=== PATIENT | female | born 1975 | race Caucasian/White ===

== ENCOUNTER 2021-11-22 12:14 | Outpatient (CLI) | payer OTHER, SELFPAY ==
--- NOTE | ~2021-11-22 | XR_ITS ---
EXAMINATION: XR lg joint inject/asp w image DATE: 11/22/2021 13:00 INDICATION: Left hip arthritis with left hip pain TECHNIQUE: A time-out was performed to verify the patient's name, date of , and procedure to b e performed. The procedure including the risks, benefits, and alternatives was discussed with the pat ient. Risks discussed included bleeding and infection. The patient understood the risks and agreed to proceed. The skin overlying the left hip joint was prepped and draped in usual sterile fashion. An esthetic was administered with 1% lidocaine subcutaneously. A 22 G needle was advanced under fluoros copic guidance into the joint. Injection of 1 mL of Omnipaque 240 confirmed intra-articular position of the needle. Subsequently, injectate consisting of 4 mL of a 1:1 mixture of 0.5% bupivacaine: 40 mg/mL Depo-Medrol for a total dosage of 80 mg Depo-Medrol was instilled. Washout of contrast was seen confirming intra-articular administration. The needle was removed and the entry site was cleaned and dressed. There were no immediate complications. Fluoroscopy exposure time was 0.1 minutes. The tota l number of images was 2. FINDINGS: Real-time fluoroscopy demonstrates the needle in the left hip joint. Patient's pain prior t o procedure:05/14. Patient's pain following the procedure: 11/14. IMPRESSION: 1. Successful left hip joint injection of local anesthetic and steroid with decrease in the patient's presenting pain. Reviewed, dictated and finalized at location A. ETING DATABASE COORDINATOR IMPRESSION: 1. Successful left hip joint injection of local anesthetic and steroid with dec rease in the patient's presenting pain.
== END 2021-11-22 12:15 | disposition home or self-care (01) ==
LOC: ANHIMG 12:16
PROVIDERS: Visit Provider Orthopaedic Surgery
DX: M16.12 Unilateral primary osteoarthritis, left hip (principal)
CPT/HCPCS: 20610; 77002; J1030; Q9966

== ENCOUNTER 2022-02-21 09:54 | Outpatient (CLI) | payer OTHER, SELFPAY ==
--- NOTE | ~2022-02-21 | XR_ITS ---
EXAMINATION: XR lg joint inject/asp w image DATE: 02/21/2022 10:59 INDICATION: Left hip arthritis presenting with pain TECHNIQUE: A time-out was performed to verify the patient's name, date of , and procedure to e performed. The procedure including the risks, benefits, and alternatives was discussed with the pat ient. Risks discussed included bleeding and infection. The patient understood the risks and agreed to proceed. The skin overlying the left hip joint was prepped and draped in usual sterile fashion. An esthetic was administered with 1% lidocaine subcutaneously. A 22 G needle was advanced under fluoros copic guidance into the joint. Injection of small amount of gas confirmed intra-articular position o f the needle. Subsequently, injectate consisting of 4 mL of a 1:1 mixture of 0.5% bupivacaine: 80 mg /mL Depo-Medrol for a total dosage of 160 mg Depo-Medrol was instilled. The needle was removed and th e entry site was cleaned and dressed. There were no immediate complications. Fluoroscopy exposure ti me was 0.1 minutes. The total number of images was 1. FINDINGS: Real-time fluoroscopy demonstrates the needle and small amount of lucent gas in the left hi p joint. Patient's pain prior to procedure:06/14. Patient's pain following the procedure: 04/13. IMPRESSION: 1. Successful left hip joint injection of local anesthetic and steroid with slight decrease in the pa tient's presenting pain. Reviewed, dictated and finalized at location A. IMPRESSION: 1. Successful left hip joint injection of local anesthetic and steroid with sli ght decrease in the patient's presenting pain.
== END 2022-02-21 09:55 | disposition home or self-care (01) ==
LOC: ANHIMG 10:05
PROVIDERS: Visit Provider Orthopaedic Surgery
DX: M16.12 Unilateral primary osteoarthritis, left hip (principal)
CPT/HCPCS: 20610; 77002; J1040

== ENCOUNTER 2022-06-06 10:58 | Outpatient (CLI) | payer OTHER, SELFPAY ==
--- NOTE | 2022-06-06 12:04 | ECG_ITS ---
Measurements Intervals [place] Rate: 60 P: 57 IA: 161 QRS: -1 QRSD: 101 T: 62 QT: 417 QTc: 420 Interpretive Statements SINUS RHYTHM DELAYED PRECORDIAL R/S TRANSITION BASELINE ARTIFACT- AVR, AVL, AVF BORDERLINE ECG NO PREVIOUS ECG AVAILABLE FOR COMPARISON Electronically Signed On 06-06-2022 14:35:53 CDT by Lloyd Holt D.O.
[2022-06-06 12:32] LABS: Basophils Percent Auto 0.2 % (0.2-1.2); Eosinophils Absolute Auto 0.1 K/mm3 (0-0.3); Eosinophils Percent Auto 1.3 % (0-4.4); Hematocrit 43.5 % (37.0-47.0); Hemoglobin 13.8 g/dL (12.0-15.0); Immature Granulocyte Absolute 0.02 K/mm3 (0.00-0.031); Immature Granulocyte Percent A 0.2 % (0-0.5); Lymphocytes Absolute Auto 3.04 K/mm3 (0.9-3.2); Lymphocytes Percent Auto 35.3 % (18.3-44.2); Mean Corpuscular HGB Conc 31.7 g/dl (32-36); Mean Corpuscular Volume 88.4 fl (80-100); Monocytes Absolute Auto 0.4 K/mm3 (0.1-0.6); Platelet Count Result 268 k/mm3 (150-375); Red Blood Count 4.92 M/mm3 (4.2-5.4); Red Cell Distribution Width 13.1 % (11.5-14.5); White Blood Count 8.6 K/mm3 (4.5-10.0)
[2022-06-06 12:36] LABS: Appearance Urine Clear (Clear); Bilirubin Urine Negative (Negative); Blood Urine Negative (Negative); Color Urine Yellow (Yellow); Glucose Urine UA Negative (Negative); Ketones Urine Negative (Negative); Leukocyte Esterase Ur Negative LEU/UL (Negative); Nitrate Urine Negative (Negative); Protein Urine Negative (Negative); Urobilinogen Urine 0.2 mg/dL (<2.0)
[2022-06-06 12:42] LABS: Urine Cotinine NEGATIVE
[2022-06-06 12:45] LABS: Prothrombin Time 12.3 Seconds (11.1-14.7)
[2022-06-06 12:46] LABS: Partial Thromboplastin Time 26.3 SECONDS (22.3-36.8)
[2022-06-06 12:46] LABS: Add Urine Microscopic? NO
[2022-06-06 12:49] LABS: Hemoglobin A1C 5.6 % (<5.7)
[2022-06-06 12:50] LABS: Albumin Level 4.7 g/dL (3.5-5.1); Anion Gap 13 mmol/L (8-16); Blood Urea Nitrogen 15 mg/dL (7-17); Carbon Dioxide 30 mmol/L (22-30); Chloride 98 mmol/L (98-107); Estimated Glomerular Filt Rate > 60; Glucose 87 mg/dL (65-110); Potassium 4.3 mmol/L (3.4-5.0); Sodium 141 mmol/L (137-145)
== END 2022-06-06 10:59 | disposition home or self-care (01) ==
LOC: ANHSURGERY 11:04
PROVIDERS: Visit Provider Orthopaedic Surgery
DX: M16.12 Unilateral primary osteoarthritis, left hip (principal); Z01.818 Encounter for other preprocedural examination; R94.31 Abnormal electrocardiogram [ECG] [EKG]
CPT/HCPCS: 80048; 80307; 81003; 82040; 83036; 85025; 85610; 85730; 86850; 86900; 86901; 87081; 93005

== ENCOUNTER 2022-06-17 00:14 | Day surgery (SDC) | payer OTHER, SELFPAY ==
[2022-06-06 11:12] VITALS: BMI 29.4
--- NOTE | 2022-06-06 11:46 | PC.NURSE ---
Report to the Outpatient Waiting Room, entrance under the green pavilion located off [facility], at time __1000 on date ___06/17/22____. OR Time: _1200 . - You and your visitor will be asked to self-screen and do not enter if you have any COVID symptoms. - Only one visitor and NO children visitors are allowed at this time. - The patient visitor is requested to leave or wait in car when not with patient due to restrictions. - A mask is required within the hospital. Patients may have clear liquids (water, carbonated beverages, clear teas, apple juice) until 3 hours prior to surgery with a maximum of 20 ounces. - No food from midnight until time of surgery - Infants may have breast milk until 4 hours before surgery, infant formula 6 hours prior to surgery. - Children will be allowed to drink immediately following surgery. If applicable, please bring a bottle or sippy cup to assist with drinking. Juice, water, soda, and popsicles are readily available. For infants on formula, please bring formula the day of surgery. Pacifiers are allowed. Take the following medications with a SIP of water the morning of surgery: ____LEVOTHYROXINE Medications to discontinue per physician __PT STATES MELOXICAM 7 DAYS PRE OP PER DR LAROSE, ALL VITAMINS/SUPPLEMENTS/PROBIOTIC 3 DAYS PRE OP Date to take last dose___MELOXICAM 06/09/22 AND ALL VIT/SUPP 06/13/22 Please no make-up, nail ukrainian, hairspray, perfume, deodorant, or body powder the day of surgery. No jewelry (including any body piercings) or valuables the day of surgery, leave them at home. Please take a shower or bath the night before, or the morning of, surgery with an antibacterial soap. Wear comfortable, loose fitting clothing. Children are encouraged to wear pajamas. - Jewelry must be removed prior to entering the operating room. Rings and piercings that are not removed may be cut off. - The hospital will not accept responsibility for valuables. - Please leave all valuables, including medications, at home the day of surgery. If you are going home after surgery, a licensed furniture mover driver must drive you home. - NO public transportation without another adult. - We recommend that an adult stay with you for 24 hours following discharge. - We also recommend that you do not drive, make important decision, drink alcoholic beverages, or take any drugs that were not prescribed by your health care provider for at least 24 hours after your discharge time. For Pediatric surgeries, we recommend two adults accompany the child home (only one inside the building at this time). Follow any additional instructions given to you from your surgeon. If you or anyone in your household have experienced Covid symptoms in the past week, please notify your surgeon or the nurse liaison at the phone number below for possible testing. VERBAL AND WRITTEN instructions given to _PATIENT AND SPOUSE CASPER and asked if any additional questions and then verbalized understanding. Patient advised to call surgeon office or pre surgery nurse liaison [phone] if any additional questions.
[2022-06-06 12:02] VITALS: BP 141/92; PULSE 63; RESP 18; TEMP 37.2; O2SAT 99
[2022-06-17] VITALS (10 sets, daily range): BP systolic 101–148; BP diastolic 56–88; PULSE 54–78; RESP 9–16; TEMP 36.1–37.1; O2SAT 93–100
--- NOTE | ~2022-06-17 | XR_ITS ---
EXAMINATION: XR hip LT 1V DATE: 06/17/2022 15:54 INDICATION: Total left hip arthroplasty. Postop. TECHNIQUE: A single view of left hip was obtained. COMPARISON: Left hip radiographs 06/06/2022 FINDINGS: There is a total left hip arthroplasty in near-anatomic alignment. No fracture. There is ga s in the soft tissues, consistent with recent surgery. IMPRESSION: 1. Total left hip arthroplasty in near-anatomic alignment. Reviewed, dictated and finalized at location A.
--- NOTE | 2022-06-17 09:14 | WPDHPUPDATE1 ---
History and Physical Update Update Date/Time: 06/17/22 09:14 History and Physical has been reviewed, including an updated exam of the patient. There are NO changes in the patient's condition. Risks, benefits, and alternatives have been discussed and questions answered. Patient agrees to proceed with procedure.
[2022-06-17] MEDS: LACTATED RINGERS 1,000 ML 30 ML IV CONT ×2 (10:43→15:34)
[2022-06-17] MEDS: ACETAMINOPHEN 500 MG TABLET 1000 MG PO (10:43)
[2022-06-17] MEDS: TRANEXAMIC ACID 1,000MG/ISO100 1,000 MG/100 ML BAG 200 MG IVPB (10:43)
[2022-06-17] MEDS: SCOPOLAMINE 1.5 MG PATCH TRANSDERM (10:57)
[2022-06-17] MEDS: ceFAZolin 2 GM/D5W 50 ML 2 GM/50 ML BAG IVPB ×2 (12:28→20:40)
[2022-06-17] MEDS: TRANEXAMIC ACID 1,000 MG/10 ML AMPUL 1000 MG IV PUSH (14:48)
--- NOTE | 2022-06-17 15:38 | W.PM.PROC2 ---
Procedure Note - Detailed Date of Procedure 06/17/22 Pre-op Diagnosis left hip djd Post-op Diagnosis Same Procedure Performed [facility] Surgeon Jerry Hargrove MD Anesthesia General Description of Procedure THE PATIENT WAS TAKEN TO THE OPERATING ROOM IN STABLE CONDITION AND WAS PLACED IN THE LATERAL DECUBITUS AND THE LEFT LOWER EXTREMITY WAS PREPPED AND DRAPED IN THE STERILE FASHION. INCISION WAS MADE IN THE POSTERIOR LATERAL SIDE OF THE HIP, DOWN TO THE FASCIA LAYER. THE FASCIA WAS INCISED. THE HIP WAS EXPOSED. THE SHORT EXTERNAL ROTATORS WERE EXPOSED. THE SCIATIC NERVE WAS IDENTIFIED. INCISION WAS MADE THROUGH THE SHORT EXTERNAL ROTATORS AND THE CAPSULE OF THE HIP JOINT. THE HIP WAS DISLOCATED. AN OSTEOTOMY WAS MADE TO THE FEMORAL NECK ABOUT 1 CM PROXIMAL TO THE LESSER TROCHANTER. THE ACETABULUM WAS EXPOSED. THERE WAS SEVERE DJD SEEN. BEGINNING WITH A 45 REAMER THE ACETABULUM WAS REAMED TO 53 MM. A 53 MM TRIAL WAS PLACED IN 35 DEG OF ABDUCTION AND ANTEVERSION WAS IN ALIGNMENT WITH THE TRANS ACETABULAR LIGAMENT. THE FIT WAS EXCELLENT. THE TRIAL WAS REMOVED. A 54 MM BIOMET G7 COMPONENT WAS THEN TAPPED IN TO PLACE IN 35 DEG OF ABDUCTION AND ANTEVERSION IN ALIGNMENT WITH THE TRANSVERSE ACETABULAR LIGAMENT. THE FIT WAS EXCELLENT. THE ACETABULAR LINER WAS PLACED AND CHECKED FOR STABILITY. NEXT THE FEMUR WAS PREPARED WITH INITIAL CANAL FINDER THEN SEQUENTIAL BROACHING WITH A TAPERLOC HIP SYSTEM, UNTIL A 15 BROACH FIT WELL IN 15 OF ANTEVERSION. A +6 HIGH OFFSET NECK WITH 36 MM HEAD TRIAL WAS PLACED. THE SHUCK TEST WAS EXCELLENT AND THE STABILITY IN FLEXION AND ROTATION WAS EXCELLENT. LEG LENGTHS WERE GROSSLY EQUAL. TRIALS WERE REMOVED. A BIOMET TAPERLOC 15 STEM WAS PLACED WITH A HIGH OFFSET NECK THE FIT WAS EXCELLENT IN 15 DEG OF ANTEVERSION. A +6 CERAMIC 36 MM FEMORAL CERAMIC HEAD WAS PLACED. THE HIP WAS TRIALED AND THE STABILITY WAS EXCELLENT WERE THE LEG LENGTHS AND THE SHUCK TEST. THE WOUND WAS IRRIGATED WITH STERILE BETADINE AND WATER FOR 3 MIN. THEN WASHED AGAIN. THE CAPSULE AND THE EXTERNAL ROTATORS WERE APPROXIMATED WITH NUMBER 1 VICRYL. THE FASCIA WITH No 2 QUIL AND THE SUB CUTANEOUS LAYER WITH 2-0 ABSORBABLE SUTURE WITH A RUNNING 3-0 SUBCUTICULAR LAYER WELL. DERMABOND WAS PLACED AND STERILE DRESSING WAS APPLIED. PATIENT WAS PLACED BACK ON TO THE SUPINE POSITION AND WAS EXTUBATED Estimated Blood Loss 100 Complications No immediate complications Condition Stable Disposition PACU
[2022-06-17] MEDS: fentaNYL CITRATE INJ (*CRX) 100 MCG/2 ML VIAL 25 MCG IV PUSH ×3 (15:39→16:41)
--- NOTE | 2022-06-17 15:46 | SUR.PHASEI ---
PORTABLE XRAY OF LEFT HIP DONE.
[2022-06-17] MEDS: ONDANSETRON INJ 4 MG/2 ML VIAL IV PUSH (16:44)
--- NOTE | 2022-06-17 17:37 | ADMGEN ---
This patient, Laura Wilson, was admitted to 3 [facility] Surg Room 305-01. Report received from WILI Pandya. Patient/family oriented to hospital policies and general routines including ID bracelet, bed and alarms, visiting hours, pain management, procedures, bathroom and other care routines, personal items, smoking policy, room service/diet, and visiting hours. Information on how to activate the Rapid Response Team has been discussed. Patient/Family are encouraged to report perceived risks to care and to ask questions if they do not understand what they are told or what they should do.
[2022-06-17] MEDS: DEXTROSE 5%/0.45% SOD CHL 1,000 ML 80 ML IV CONT (17:45)
[2022-06-17] MEDS: SENNA/DOCUSATE SODIUM TABLET 2 TAB PO (17:46)
[2022-06-17] MEDS: KETOROLAC 15 MG/ML VIAL (*BKC) IV PUSH (17:46)
[2022-06-17 18:16] LABS: Hemoglobin 12.2 g/dL (12.0-15.0)
[2022-06-17] MEDS: ASPIRIN 325 MG ENTERIC TABLET PO (20:39)
[2022-06-18] MEDS: KETOROLAC 15 MG/ML VIAL (*BKC) IV PUSH ×3 (00:14→12:49)
[2022-06-18 04:00] VITALS: BP 125/76; PULSE 80; RESP 16; TEMP 36.8; O2SAT 99
[2022-06-18] MEDS: ceFAZolin 2 GM/D5W 50 ML 2 GM/50 ML BAG IVPB ×2 (04:16→12:50)
[2022-06-18] MEDS: DEXTROSE 5%/0.45% SOD CHL 1,000 ML 80 ML IV CONT (06:07)
[2022-06-18] MEDS: LEVOTHYROXINE SODIUM 75 MCG TABLET PO (06:07)
[2022-06-18 06:42] LABS: Basophils Percent Auto 0.2 % (0.2-1.2); Hematocrit 35.4 % (37.0-47.0); Hemoglobin 11.1 g/dL (12.0-15.0); Immature Granulocyte Absolute 0.04 K/mm3 (0.00-0.031); Immature Granulocyte Percent A 0.3 % (0-0.5); Lymphocytes Absolute Auto 1.92 K/mm3 (0.9-3.2); Lymphocytes Percent Auto 14.7 % (18.3-44.2); Mean Corpuscular HGB Conc 31.4 g/dl (32-36); Mean Corpuscular Hemoglobin 28.3 pg (26-34); Mean Corpuscular Volume 90.3 fl (80-100); Monocytes Absolute Auto 0.8 K/mm3 (0.1-0.6); Monocytes Percent Auto 6.2 % (2.6-8.5); Neutrophils Absolute Auto 10.3 K/mm3 (1.3-6.7); Neutrophils Percent Auto 78.6 % (45.5-73.1); Platelet Count Result 185 k/mm3 (150-375); Red Blood Count 3.92 M/mm3 (4.2-5.4); Red Cell Distribution Width 13.5 % (11.5-14.5); White Blood Count 13.1 K/mm3 (4.5-10.0)
[2022-06-18 06:53] LABS: Anion Gap 10 mmol/L (8-16); Blood Urea Nitrogen 8 mg/dL (7-17); Calcium 8.4 mg/dL (8.4-10.2); Carbon Dioxide 24 mmol/L (22-30); Chloride 103 mmol/L (98-107); Estimated CRCL calculation 147 ml/min; Estimated Glomerular Filt Rate > 60; Glucose 127 mg/dL (65-110); Potassium 3.7 mmol/L (3.4-5.0); Sodium 137 mmol/L (137-145)
--- NOTE | 2022-06-18 07:46 | WPDANESPN ---
Anes - Prog Note Post-Op Date/Time: 06/18/22 07:46 Cardiovascular status: normal Respiratory status: normal Airway patency: baseline Mental status: baseline Post-Op hydration status: normal Vital Signs: Last Vital Signs Temp 36.8 C 06/18/22 04:00 Pulse 80 06/18/22 04:00 Resp 16 06/18/22 04:00 BP 125/76 06/18/22 04:00 Pulse Ox 99 06/18/22 04:00 O2 Del Method Room Air 06/17/22 16:50 O2 Flow Rate 8 06/17/22 15:34 Pain Score (VAS): 12/12 I/O: Intake & Output 06/17/22 06/17/22 06/18/22 15:59 23:59 07:59 Intake Total 1050 1000 1850 Output Total 2100 Balance 1050 1000 -250 Laboratory Tests 06/18/22 05:58 06/18/22 05:58 06/17/22 06/18/22 06/18/22 18:08 05:58 05:58 WBC 13.1 H RBC 3.92 L Hgb 12.2 11.1 L Hct 39.0 35.4 L MCV 90.3 MCH 28.3 MCHC 31.4 L RDW 13.5 Plt Count 185 MPV 10.0 Immature Gran % (Auto) 0.3 Neut % (Auto) 78.6 H Lymph % (Auto) 14.7 L [place] % (Auto) 6.2 Eos % (Auto) 0.0 Baso % (Auto) 0.2 Lymph # (Auto) 1.92 [place] # (Auto) 0.8 H Eos # (Auto) 0.0 Baso # (Auto) 0.0 Abs Immat Gran (auto) 0.04 H Absolute Neuts (auto) 10.3 H Absolute Nucleated RBC 0.0 Nucleated RBC % 0.0 Sodium 137 Potassium 3.7 Chloride 103 Carbon Dioxide 24 Anion Gap 10 BUN 8 D Creatinine 0.50 L Estim Creat Clear Calc 147 Estimated GFR > 60 Glucose 127 H Calcium 8.4 Post-procedural complaints: none Patient Feedback: Patient satisfied with anesthetic care.
[2022-06-18 08:00] VITALS: PULSE 75; RESP 16; O2SAT 100
[2022-06-18] MEDS: SENNA/DOCUSATE SODIUM TABLET 2 TAB PO (09:13)
[2022-06-18] MEDS: polyethylene glycoL 3350 17 GM POWD.PACK PO (09:13)
[2022-06-18] MEDS: ASPIRIN 325 MG ENTERIC TABLET PO (09:14)
[2022-06-18] MEDS: ACETAMINOPHEN 325 MG TABLET PO (10:59)
[2022-06-18 14:11] VITALS: BP 118/69; PULSE 75; RESP 16; TEMP 36.9; O2SAT 100
--- NOTE | 2022-06-18 16:49 | PM.PNORT ---
Progress Note: A&P Assessment and Plan (1) Degenerative joint disease of left hip: Qualifiers: Osteoarthritis type: primary Qualified Code(s): M16.12 - Unilateral primary osteoarthritis, left hip Code(s): M16.12 - Unilateral primary osteoarthritis, left hip Status: Acute Plan POD 1 DOING WELL. OK TO DC HOME F/U IN 3 WEEKS. Subjective Subjective Date/Time Seen: 06/18/22 16:49 POD 1 DOING WELL. GOOD PROGRESS WITH PT. NO CALF PAIN Exam Extrem: Other: VSS AFEBRILE DRESSING DRY NV INTACT NEG HOMANS SIGN Objective Data Vital Signs Vital Signs: Vital Signs - 24 hr 06/17/22 16:50 06/17/22 17:38 06/17/22 18:38 Temperature 36.1 C L 36.3 C L Pulse Rate 62 63 76 Respiratory Rate 10 L 12 Blood Pressure 107/70 101/56 L 125/66 Pulse Oximetry 93 100 100 Oxygen Delivery Room Air 06/17/22 21:56 06/18/22 04:00 06/18/22 09:39 Temperature 36.4 C 36.8 C Pulse Rate 78 80 Respiratory Rate 16 16 Blood Pressure 136/75 125/76 Pulse Oximetry 100 99 Oxygen Delivery Room Air 06/18/22 14:11 06/18/22 08:00 Temperature 36.9 C Pulse Rate 75 75 Respiratory Rate 16 16 Blood Pressure 118/69 Pulse Oximetry 100 100 Oxygen Delivery Room Air Intake/Output Intake/Output: Intake & Output 06/15/22 06/16/22 06/17/22 06/18/22 23:59 23:59 23:59 23:59 Intake Total 2049 2379 Output Total 2099 Balance 2049 280 Meds/Results Medications: Active Medications Generic Name Dose Route Start Last Admin Trade Name Freq PRN Reason Stop Dose Admin Acetaminophen 325 mg 06/17/22 16:53 06/18/22 10:59 Acetaminophen 325 Mg Tablet PO 325 mg Q6H PRN Administration Pain Hydrocodone Bitart/Acetaminophen 1 tab 06/17/22 16:53 Hydrocodone/Acetaminophen (*Crx) 7.5-325 Mg Tablet PO Q3H PRN Pain Rated 4-6 Aspirin 325 mg 06/17/22 21:00 06/18/22 09:14 Aspirin 325 Mg Enteric Tablet PO 325 mg Q12HR JUDITH Administration Bisacodyl 5 mg 06/17/22 16:53 Bisacodyl 5 Mg Tablet Ec PO .PRN JUDITH Diazepam 5 mg 06/17/22 16:53 Diazepam (*Crx) 5 Mg Tablet PO Q6H PRN Anxiety/Muscle Spasm Hydroxyzine HCl 50 mg 06/17/22 16:53 Hydroxyzine Hcl 25 Mg Tablet PO Q4H PRN Itching Dextrose/Sodium Chloride 1,000 mls @ 80 mls/hr 06/17/22 16:53 06/18/22 16:45 Dextrose 5% Sodium Chloride 0.45% IV CONT Not Given .[id number] [facility] Ketorolac Tromethamine 15 mg 06/17/22 18:00 06/18/22 12:49 Ketorolac 15 Mg/Ml Vial (*Bkc) IV PUSH 06/18/22 18:01 15 mg Q6HR JUDITH Administration Levothyroxine Sodium 75 mcg 06/18/22 06:30 06/18/22 06:07 Levothyroxine Sodium 75 Mcg Tablet PO 75 mcg DAILY@0630 [facility] Administration Miscellaneous Information 0 each 06/17/22 00:01 Bisacodyl Clarify Sig Prn Or Scheduled? XX 07/17/22 00:00 CLARIFY JUDITH Morphine Sulfate 3 mg 06/17/22 16:53 Morphine Sulfate (*Crx) 4 Mg/Ml Inj IV PUSH Q3H PRN Pain Rated 7-10 Naloxone HCl 0.1 mg 06/17/22 16:53 Naloxone Hcl 0.4 Mg/Ml Vial IV PUSH Q2M PRN Opiate Reversal Ondansetron HCl 4 mg 06/17/22 16:53 Ondansetron Inj 4 Mg/2 Ml Vial IV PUSH Q4H PRN Nausea And Vomiting Polyethylene Glycol 17 gm 06/18/22 09:00 06/18/22 09:13 Polyethylene Glycol 3350 17 Gm Powd.Pack PO 17 gm QAM [facility] Administration Senna/Docusate Sodium 2 tab 06/17/22 17:00 06/18/22 09:13 Senna/Docusate Sodium Tablet PO 2 tab BID [facility] Administration Radiology Results: ITS Impressions Hip X-Ray 06/17/22 16:03 IMPRESSION: 1. Total left hip arthroplasty in near-anatomic alignment. Labs Labs: Laboratory Results - last 24 hr 06/17/22 06/18/22 06/18/22 18:08 05:58 05:58 WBC 13.1 H RBC 3.92 L Hgb 12.2 11.1 L Hct 39.0 35.4 L MCV 90.3 MCH 28.3 MCHC 31.4 L RDW 13.5 Plt Count 185 MPV 10.0 Immature Gran % (Auto) 0.3 Neut % (Auto) 78.6 H Lymph % (Auto)
--- NOTE | 2022-06-18 16:53 | PM.DS ---
DS: Admitting Diagnosis Discharge Date 06/18/22 Admitting Diagnosis LEFT HIP DJD DS: Discharge Diagnosis Discharge Diagnosis (1) Degenerative joint disease of left hip: Qualifiers: Osteoarthritis type: primary Qualified Code(s): M16.12 - Unilateral primary osteoarthritis, left hip Code(s): M16.12 - Unilateral primary osteoarthritis, left hip Status: Acute DS: Summary Hospital Course Reason for hospitalization: [facility] Hospital Course: PATIENT WAS ADMITTED S/P TOTAL HIP ARTHROPLASTY FOR POSTOPERATIVE MEDICAL MANAGEMENT, PAIN CONTROL AND MOBILIZATION WITH PHYSICAL AND OCCUPATIONAL THERAPY. THE PATIENT PROGRESSED WELL WITH PT/OT. LABS AND VITALS REMAINED STABLE AND PAIN WELL CONTROLLED. THE PATIENT HAS BEEN CLEARED TO BE DISCHARGED HOME. FOLLOW UP APPOINTMENT SCHEDULED. DISCHARGE INSTRUCTIONS DISCUSSED AT LENGTH WITH THE PATIENT. MEDICATIONS REVIEWED. Status at Discharge Functional status at discharge: uses cane/walker Time Spent with Patient Time attestation: Total time spent providing and/or coordinating discharge services: DS: Data Data Completed and Pending Labs on day of discharge: Labs from last 24 hours 06/18/22 06/18/22 06/17/22 05:58 05:58 18:08 WBC 13.1 H RBC 3.92 L Hgb 11.1 L 12.2 Hct 35.4 L 39.0 MCV 90.3 MCH 28.3 MCHC 31.4 L RDW 13.5 Plt Count 185 MPV 10.0 Immature Gran % (Auto) 0.3 Neut % (Auto) 78.6 H Lymph % (Auto) 14.7 L [place] % (Auto) 6.2 Eos % (Auto) 0.0 Baso % (Auto) 0.2 Lymph # (Auto) 1.92 [place] # (Auto) 0.8 H Eos # (Auto) 0.0 Baso # (Auto) 0.0 Abs Immat Gran (auto) 0.04 H Absolute Neuts (auto) 10.3 H Absolute Nucleated RBC 0.0 Nucleated RBC % 0.0 Sodium 137 Potassium 3.7 Chloride 103 Carbon Dioxide 24 Anion Gap 10 BUN 8 D Creatinine 0.50 L Estim Creat Clear Calc 147 Estimated GFR > 60 Glucose 127 H Calcium 8.4 Discharge Plan Discharge Patient Disposition: Home Health Service Discharge Instructions: Remove the Scopolamine patch that was placed behind your ear in 72 hours or less. Wash your hands after touching.Per Care Coordination, Home Health has been arranged with [facility] Home Health. They will contact you to arrange first visit. If you have questions, they can be reached at [phone]. Nursing, please fax discharge instructions to [phone] BRANDON HARGROVE M.D. [facility] [address] [place] [address] POST OPERATIVE DISCHARGE INSTRUCTIONS FOLLOWING TOTAL HIP REPLACEMENT SURGERY ? Your dressing will be changed prior to your discharge. You will be sent home with one additional dressing to be changed on post op day 7 by the home health RN. You may remove the dressing on post op day 14. Your incision was closed with dermabond, allow the dermabond to fall off naturally once your dressing is removed. Do not pull at the dermabond or disrupt incision healing. ? You may shower with your dressing but do not submerge in a bath tub. ? Do not drive or operate machinery until you are released by Dr. Hargrove. ? Do not walk without a walker for any reason until you are released by Dr. Hargrove. ? Continue to apply ice to the hip intermittently for additional pain relief. Protect your skin with a towel or pillow case. ? Unless otherwise instructed by Dr. Hargrove you me be weight bearing as tolerated with your walker. ? Continue to follow strict total hip replacement precautions. ? Your first post op appointment was sent to you via mail preoperatively. If you have any questions or are unable to make your appointment, please contact our office for scheduling questions. ? Your medications have been sent to your pharmacy. You have been sent home with pain medication. We have also sent you with a stool softener as narcotics can cause constipation. Please keep this in mind
[2022-06-18] MEDS: HYDROcodone/acetaminophen (*CRX) 7.5-325 MG TABLET 1 TAB PO (17:44)
== END 2022-06-18 17:54 | disposition home health service (06) ==
LOC: ANHSURGERY 10:56 → ANH3MEDSUR 17:34
PROVIDERS: Visit Provider Orthopaedic Surgery
PROC: (CPT 27130; principal; 2022-06-17 12:00)
DX: M16.12 Unilateral primary osteoarthritis, left hip (principal); Z87.891 Personal history of nicotine dependence; F12.90 Cannabis use, unspecified, uncomplicated
CPT/HCPCS: 27130; 36415; 73501; 80048; 80307; 81003; 82040; 83036; 85014; 85018; 85025; 85610; 85730; 86850; 86900; 86901; 87081; 93005; 97110; 97116; 97161; 97165; 97530; 97535; A9270; C1713; C1776; J0171; J0330; J0690; J1100; J1170; J1885; J2250; J2270; J2405; J2704; J2795; J3010; J7120

== ENCOUNTER 2024-08-15 13:36 | Outpatient (CLI) | payer BC, SELFPAY ==
--- NOTE | ~2024-08-15 | XR_ITS ---
EXAMINATION: XR lg joint inject/aspiration DATE: 08/15/2024 14:27 INDICATION: Right hip arthritis. TECHNIQUE: A time-out was performed to verify the patient's name, date of , and procedure to b e performed. The procedure including the risks, benefits, and alternatives was discussed with the pat ient. Risks discussed included bleeding and infection. The patient understood the risks and agreed to proceed. The skin overlying the right hip joint was prepped and draped in usual sterile fashion. A nesthetic was administered with 1% lidocaine subcutaneously. A 22 G needle was advanced under fluoro scopic guidance into the joint. Subsequently, injectate consisting of 2 mL 0.5% bupivacaine and 1 mL 80 mg/mL Depo-Medrol was instilled. The needle was removed and the entry site was cleaned and dress ed. There were no immediate complications. Fluoroscopy exposure time was 0.1 minutes. The total numb er of images was 1. FINDINGS: Real-time fluoroscopy demonstrates the needle in the right hip joint. IMPRESSION: 1. Fluoroscopy guided right hip joint injection of local anesthetic and steroid. Reviewed, dictated and finalized at location A. LE CARRIER IMPRESSION: 1. Fluoroscopy guided right hip joint injection of local anesthetic and steroid .
== END 2024-08-15 13:37 | disposition home or self-care (01) ==
PROVIDERS: Visit Provider Orthopaedic Surgery
DX: M16.11 Unilateral primary osteoarthritis, right hip (principal)
CPT/HCPCS: 20610; J1010